=== PATIENT | female | born 1990 | race Two or more races ===

== ENCOUNTER 2019-01-04 21:22 | Emergency (ER) | payer OTHER ==
[~2019-01-04] VITALS: Ht 170.2 cm; Wt 108.9 kg
[2019-01-04 21:36] VITALS: Ht 170.2 cm; Wt 108.9 kg
[2019-01-04 22:48] VITALS: BP 127/86
== END 2019-01-04 22:48 | disposition home or self-care (01) ==
LOC: ED 21:22
DX: S63.501A Unspecified sprain of right wrist, initial encounter (principal); S30.0XXA Contusion of lower back and pelvis, initial encounter; W10.9XXA Fall (on) (from) unspecified stairs and steps, initial encounter; Y93.89 Activity, other specified; Y92.89 Other specified places as the place of occurrence of the external cause; Y99.8 Other external cause status
CPT/HCPCS: J1885